=== PATIENT | female | born 1960 | race Two or more races ===

== ENCOUNTER 2023-06-22 07:10 | Emergency (ER) | payer MEDICARE, MEDICAID ==
[~2023-06-22] VITALS: Ht 170.2 cm; Wt 69.4 kg
[2023-06-22 07:51] VITALS: BP 165/96; PULSE 87; RESP 18; TEMP 97.8; O2SAT 96
[2023-06-22] MEDS ORDERED: KETOROLAC TROMETH 60MG/2ML VIAL IM ONE (08:00)
[2023-06-22] MEDS ORDERED: IBUP-1456 PO (08:45)
[2023-06-22] MEDS ORDERED: METH-1182 PO (08:45)
== END 2023-06-22 09:00 | disposition home or self-care (01) ==
LOC: ER 07:10
DX: S39.012A Strain of muscle, fascia and tendon of lower back, initial encounter (principal); Z79.1 Long term (current) use of non-steroidal anti-inflammatories (NSAID); Z79.899 Other long term (current) drug therapy; X50.0XXA Overexertion from strenuous movement or load, initial encounter; Y93.89 Activity, other specified; Y92.89 Other specified places as the place of occurrence of the external cause; Y99.8 Other external cause status
CPT/HCPCS: 72100; 96372; 99283; J1885

== ENCOUNTER 2024-05-14 06:48 | Emergency (ER) | payer MEDICARE, MEDICAID ==
[~2024-05-14] VITALS: Ht 170.2 cm; Wt 70.9 kg
[~2024-05-14 06:48] MED LIST: IBUP-1456 PO; METH-1182 PO
[2024-05-14 07:33] VITALS: BP 139/87; PULSE 82; RESP 18; TEMP 98; O2SAT 100
[2024-05-14] MEDS: KETOROLAC TROMETH 30 MG/ML 1ML VIAL IM ONE (07:59)
[2024-05-14] MEDS ORDERED: IBUP1TAB5 PO (09:28)
[2024-05-14] MEDS ORDERED: DICL1GEL59 EX (09:28)
== END 2024-05-14 09:44 | disposition home or self-care (01) ==
LOC: ER 06:48
DX: S93.601A Unspecified sprain of right foot, initial encounter (principal); W18.42XA Slipping, tripping and stumbling without falling due to stepping into hole or opening, initial encounter; Y93.89 Activity, other specified; Y92.89 Other specified places as the place of occurrence of the external cause; Y99.8 Other external cause status
CPT/HCPCS: 73610; 73630; 96372; 99284; J1885